=== PATIENT | male | born 1970 | race Caucasian/White ===

== ENCOUNTER 2020-07-07 18:50 | Emergency (ER) | payer OTHER, SELFPAY ==
--- NOTE | ~2020-07-07 | XR_ITS ---
EXAMINATION: XR hand LT min 3V INDICATION: Left hand pain, initial encounter TECHNIQUE: Three views of the left hand are obtained. COMPARISON: None available FINDINGS: There is a subtle nondisplaced fracture in the proximal shaft of the fourth distal phalanx. Soft tissue swelling surrounds the fracture. No additional acute osseous findings are evident. The j oint spaces are normal. IMPRESSION: 1. Subtle nondisplaced fracture involving the proximal shaft of the fourth distal phalanx. Reviewed, dictated and finalized at location A. IMPRESSION: 1. Subtle nondisplaced fracture involving the proximal shaft of the fourth dist al phalanx.
[2020-07-07 18:57] VITALS: BP 170/105; PULSE 86; RESP 16; TEMP 36.6; O2SAT 98
--- NOTE | 2020-07-07 20:27 | PC.NURSE ---
Pt to ED 22 from wr. 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 bleeding controlled upon this RN's inspection. pt awaiting .
[2020-07-07 20:28] VITALS: BP 176/107; PULSE 80; RESP 20; O2SAT 98
--- NOTE | 2020-07-07 20:41 | ED.GENADULT ---
HPI - General Adult General Chief complaint: Extremity Injury, Upper Stated complaint: left hand injury Time Seen by Provider: 07/07/20 19:30 Source: patient, family and RN notes reviewed Mode of arrival: ambulatory Limitations: no limitations History of Present Illness HPI narrative: Patient is a 49-year-old male who presents to emergency department for evaluation of left fourth and fifth finger injuries patient was using a drill when he injured the fingers patient notes laceration to the palmar surface at the DIP joint patient notes aching pain with some numbness patient has not taken anything for pain notes his tetanus is not up-to-date Related Data Allergies Allergy/AdvReac Type Severity Reaction Status Date / Time No Known Allergies Allergy Verified 07/07/20 20:26 Review of Systems Review of Systems: All systems reviewed & are unremarkable except as noted in HPI and below PMFSH Social History Social History (Updated 07/07/20 @ 20:43 by Emil Oh PA-C) Smoking status: Never smoker Exam Narrative: Exam Narrative: GENERAL: Well-appearing, well-nourished, and in no acute distress. HEAD: Normocephalic, atraumatic. EYES: PERRLA and EOMI. ENT: Nares clear, no rhinorrhea or epistaxis. Mucous membranes moist. EXTREMITIES: Normal range of motion. No edema. 1 cm laceration across the DIP joint at the crease palmar surface. Tenderness of the distal phalanxes of the fourth and fifth digits left hand SKIN: Warm, dry, no rash. NEURO: No focal deficits. Alert and oriented x3. Neurovascularly intact. Capillary refill less than 2 seconds PSYCH: Normal mood and affect. Course Course Emergency Course: Patient in the room in no distress aware of case findings treatment plan diagnosis agreeing to follow-up as instructed or to return if symptoms worsen or concerns given plastic surgery and primary care follow-up Vital Signs Vital signs: Vital Signs Temperature 97.9 F 07/07/20 18:57 Pulse Rate 86 07/07/20 18:57 Respiratory Rate 16 07/07/20 18:57 Blood Pressure 170/105 H 07/07/20 18:57 Pulse Oximetry 98 07/07/20 18:57 Temperature 97.9 F 07/07/20 18:57 Pulse Rate 80 07/07/20 20:28 Respiratory Rate 20 07/07/20 20:28 Blood Pressure 176/107 H 07/07/20 20:28 Pulse Oximetry 98 07/07/20 20:28 Procedures Laceration Laceration 1: Date: 07/07/20 Time: 20:44 Site: hand Side (If applicable): left Size (cm): 1 Description: linear Depth: simple, single layer, involves muscle layer and involves tendon Local Anesthetic: lidocaine 1% Pre-repair: wound explored, irrigated and irrigated extensively ====== Skin Level ====== Skin layer closed with: nylon Size (cm): 4-0 Number of sutures: 2 ====== Subcutaneous Layer ====== ====== Muscle Layer ====== ====== Tendon Layer ====== Dressing: Antibiotic ointment nonadhesive 4 x 4 and [place] placed with metal finger splint post procedure Orthopedic Splinting/Casting Injury #1: Splinting/Casting Date: 07/07/20 Splinting/Casting Time: 20:44 Side: left Upper Extremity Injury Location: finger Upper Extremity Immobilizer: aluminum form splint Pre-Formed: metal foam finger splint Medical Decision Making MDM Narrative Medical decision making narrative: Patients injury or pain is consistent with musculoskeletal etiology. No signs of neurological or vascular compromise on exam. Compartments and tisues are soft without signs of compartment syndrome. Pain is felt appropriate for further evaluation on an outpatient basis. Patient will be placed on antibiotics and referred to hand surgery given the underlying fracture and laceration Vital Signs Vital Signs: Vital Signs Temperature 97.9 F 07/07/20 18:57 Pulse Rate 86 07/07/20 18:57 Respiratory Rate 16 07/07/20 18:57 Blood Pressure 170/105 H 07/07/20 18:57 Pulse
[2020-07-07] MEDS: CEPHALEXIN 500 MG CAPSULE PO (20:52)
[2020-07-07] MEDS: TETANUS,DIPHTHERIA,AC PERTUSSIS ADULT (0.5 ML) BOOSTRIX IM (20:53)
[2020-07-07] MEDS: LIDOCAINE HCL 1% LOCAL INJ 20 ML VIAL (20:56)
== END 2020-07-07 21:25 | disposition home or self-care (01) ==
PROVIDERS: Emergency Provider Emergency Medicine
DX: S62.645B Nondisplaced fracture of proximal phalanx of left ring finger, initial encounter for open fracture (principal); W29.8XXA Contact with other powered hand tools and household machinery, initial encounter; Z23 Encounter for immunization
CPT/HCPCS: 12001; 29130; 73130; 90471; 90715; 99283; A9270